=== PATIENT | female | born 1985 | race Caucasian/White ===

== ENCOUNTER 2018-08-22 12:14 | Emergency (ER) | payer BC ==
[2018-08-22 13:18] VITALS: BP 121/77
--- NOTE | 2018-08-22 13:35 | UC ---
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 LOW GRADE FEVER AT HOME. 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 -mild body aches. Tmax 99. -had flu last year but she doesnt feel that sick. -no asthma. -has allergy to preservative called ID or MCI and has alb for that. but has not used it w/ recent cough -loud cough that made her sleep in another room for. - History of Current Complaint Chief Complaint: UCRespiratory Stated Complaint: SORE THROAT,COUGH Time Seen by Provider: 08/22/18 13:15 Hx Last Menstrual Period: HAS AN IUD, DOES NOT HAVE REG PERIOD Pain Intensity: 4 - Allergies/Home Medications Allergies/Adverse Reactions: Allergies Allergy/AdvReac Type Severity Reaction Status Date / Time acetaminophen Allergy Unknown itiching Verified 08/22/18 13:11 [From Tylenol-Codeine] codeine Allergy Unknown itiching Verified 08/22/18 13:11 [From Tylenol-Codeine] Penicillins Allergy Unknown nausea and Verified 08/22/18 13:11 diarrhea tramadol Allergy Unknown Itching Verified 08/22/18 13:11 PMH/Surg Hx/FS Hx/Imm Hx Previously Healthy: Yes - Surgical History Surgical History: Yes Surgery Procedure, Year, and Place: TONSILLECTOMY A CHILD 05/2001 RIGHT SHOULDER SLAP [facility] REPAIR, [place] 11/2006 LEFT SHOULDER TORN LABRUM REPAIR, [place] LEFT L5-S1 [place]ILAMINOTOMY 09/22/14 [place] [facility] [place] - Family History Known Family History: Positive: Hypertension - Social History Alcohol Use: Weekly Substance Use Type: None Smoking Status (MU): Never Smoked Tobacco - Immunization History Most Recent Influenza Vaccination: never/unknown Most Recent Tetanus Shot: less than 10 years ago Most Recent Pneumonia Vaccination: never Review of Systems All Other Systems Reviewed And Are Negative: Yes Constitutional: Positive: Negative Skin: Positive: Negative Eyes: Positive: Negative ENT: Positive: Sore Throat, Nasal Discharge, Sinus Congestion Respiratory: Positive: Cough Cardiovascular: Positive: Negative Gastrointestinal: Positive: Negative Genitourinary: Positive: Negative Motor: Positive: Negative Neurovascular: Positive: Negative Musculoskeletal: Positive: Arthralgia Neurological: Positive: Negative Psychological: Positive: Negative Is Patient Immunocompromised?: No Physical Exam Triage Information Reviewed: Yes Appearance: Well-Appearing, No Pain Distress, Well-Nourished - very pleasant, good historian. Vital Signs: Initial Vital Signs Temp 98.4 F 08/22/18 13:12 Pulse 75 08/22/18 13:12 Resp 18 08/22/18 13:12 BP 121/77 08/22/18 13:12 Pulse Ox 98 08/22/18 13:12 ENT Exam: Normal Dental Exam: Normal Neck exam: Normal Neck: Positive: Supple, Nontender, No Lymphadenopathy Respiratory Exam: Normal Respiratory: Positive: Lungs clear, Normal breath sounds, No respiratory distress, No accessory muscle use. Negative: Crackles, Rhonchi, Stridor, Wheezing Cardiovascular Exam: Normal Cardiovascular: Positive: RRR, No Murmur Abdominal Exam: Normal Musculoskeletal Exam: Normal Neurological Exam: Normal Psychological Exam: Normal Skin Exam: Normal UC Diagnostic Evaluation - Laboratory O2 Sat by Pulse Oximetry: 98 Respiratory Course/Dx - Course Course Of Treatment: rapid flu negative. -no e/o bacterial infection. - tessalon perlnoel. re-kimmy if sx increase or persist. -she understood me well and is very agreeable w/ this plan - Differential Dx/Diagnosis Differential Diagnosis/HQI/PQRI: Asthma, Bronchitis, Influenza, Laryngitis, Sinusitis Provider Diagnosis: Bronchitis Discharge - Sign-Out/Discharge Documenting (check all that apply): Patient Departure All imaging exams completed and their final reports reviewed: No Studies - Discharge Plan Condition: Stable Disposition: HOME Prescriptions: Benzonatate CAP* [Tessalon 100 MG CAP*] 100 mg PO TID PRN #30 cap PRN Reason: Cough Patient Education Materials: Acute Bronchitis (ED) Referrals: Jorge Moss DO [Primary Care Provider] - 6 Days Additional Instructions: Flu swab is negative. There is no evidence for any bacterial infection at this time. Fluids, rest and albuterol can be helpful. - Billing Disposition and Condition Condition: STABLE Disposition: Home
[2018-08-22 14:17] LABS: Influenza A Molecular NEGATIVE (Negative); Influenza B Molecular NEGATIVE (Negative)
== END 2018-08-22 14:27 | disposition home or self-care (01) ==
LOC: UCCORT 12:14
DX: J40 Bronchitis, not specified as acute or chronic (principal); J02.9 Acute pharyngitis, unspecified; J34.89 Other specified disorders of nose and nasal sinuses; Z88.6 Allergy status to analgesic agent; Z88.5 Allergy status to narcotic agent; Z88.0 Allergy status to penicillin
CPT/HCPCS: 99212; G0463